=== PATIENT | male | born 1955 | race Caucasian/White ===

== ENCOUNTER 2019-08-03 10:27 | Observation (INO) | payer BC ==
[~2019-08-03] VITALS: Ht 180.3 cm; Wt 94.0 kg
--- NOTE | 2019-08-03 10:27 | NUR ---
Pt BIB [facility]/o "fluttering" feeling in chest starting this morning while he was a passenger in a car. Pt states that he began feeling dizzy as well. Pt states that the sx have now resolved but lasted for approximately 45min. Pt A&Ox4, skin PWD, NADN. Pt placed in gown, positioned for comfort in bed. Continuous heart, oxygen and BP monitors applied, all safety measures observed. Pt's friend at bedside. EKG completed by this RN and presented to Dr. Milner who is now at bedside to evaluate pt.
[2019-08-03 11:09] LABS: BASOPHILS # (AUTO) 0.02 x10^3/uL (0-0.1); BASOPHILS % (AUTO) 1 % (0-1); EOSINOPHILS # (AUTO) 0.08 x10^3/uL (0-0.4); EOSINOPHILS % (AUTO) 2 % (1-7); LYMPHOCYTES # (AUTO) 0.84 x10^3/uL (1-3.4); LYMPHOCYTES % (AUTO) 19 % (22-44); MD NO; MEAN CORPUSCULAR HGB CONC 32.9 g/dL (33.2-36.2); MEAN CORPUSCULAR VOLUME 85.2 fL (81-97); MONOCYTES # (AUTO) 0.32 x10^3/uL (0.2-0.8); MONOCYTES % (AUTO) 7 % (2-9); NEUTROPHILS # (AUTO) 3.24 x10^3/uL (1.8-6.8); NEUTROPHILS % (AUTO) 72 % (42-75); PLATELET COUNT 157 x10^3/uL (130-400); RED BLOOD COUNT 4.85 x10^6/uL (4.38-5.82); RED CELL DISTRIBUTION WIDTH 16.4 % (9.4-14.8)
--- NOTE | 2019-08-03 11:12 | NUR ---
Pt ambulatory to bathroom and back to bed with steady gait, NADN.
[2019-08-03 11:14] LABS: ALBUMIN 3.8 g/dL (3.4-5.0); ANION GAP 13 mmol/L (5-15); CALCIUM 8.7 mg/dL (8.5-10.1); CHLORIDE 109 mmol/L (98-107); CREATININE 1.15 mg/dL (0.7-1.3)
--- NOTE | 2019-08-03 11:44 | NUR ---
Pt resting in bed, NADN, denies needs. Dr. Milner at bedside to discuss POC with pt.
[2019-08-03] MEDS ORDERED: CETI10TA26 PO (12:28)
[2019-08-03] MEDS ORDERED: ALBU8.5H8 INH (12:28)
[2019-08-03] MEDS ORDERED: FLUT9.9S NAS (12:28)
--- NOTE | 2019-08-03 13:29 | NUR ---
Report called to Deborah HURT on card tele. Floor ready for pt transport.
[2019-08-03 13:57] VITALS: BP 161/100
[2019-08-03] MEDS ORDERED: ONDANSETRON ODT 4 MG PO PRN (14:00)
[2019-08-03] MEDS ORDERED: PROMETHAZINE 25 MG/ML, 1ML IM PRN (14:00)
[2019-08-03] MEDS ORDERED: hydrALAzine 20 MG/ML, 1ML IVPush PRN (14:00)
[2019-08-03] MEDS ORDERED: DOCUSATE 100 MG CAPSULE PO PRN (14:00)
[2019-08-03] MEDS ORDERED: BISACODYL 10 MG SUPP PR PRN (14:00)
[2019-08-03] MEDS ORDERED: ACETAMINOPHEN 325 MG TABLET PO PRN (14:00)
[2019-08-03] MEDS ORDERED: POLYETHYLENE GLYCOL 17 GM PACKET PO PRN (14:00)
[2019-08-03] MEDS ORDERED: ENOXAPARIN 40 MG/0.4 ML SQ SCH (14:00)
[2019-08-03] MEDS ORDERED: ONDANSETRON 2MG/ML, 2ML IVPush PRN (14:00)
[2019-08-03 14:11] VITALS: BP 161/100
[2019-08-03] MEDS: SODIUM CHLORIDE 0.9% 1,000 ML IV SCH (14:30)
[2019-08-03] MEDS ORDERED: ALBUTEROL HFA 90 MCG/SPRAY INH PRN (14:30)
[2019-08-03 16:34] LABS: MICROSCOPIC NOT IND
[2019-08-03 17:02] VITALS: BP 172/89
[2019-08-03 19:34] VITALS: BP 162/92
[2019-08-04 01:05] VITALS: BP 134/79
[2019-08-04] MEDS: SODIUM CHLORIDE 0.9% 1,000 ML IV SCH (03:13)
[2019-08-04 05:49] LABS: BASOPHILS # (AUTO) 0.02 x10^3/uL (0-0.1); BASOPHILS % (AUTO) 0 % (0-1); EOSINOPHILS # (AUTO) 0.13 x10^3/uL (0-0.4); EOSINOPHILS % (AUTO) 3 % (1-7); LYMPHOCYTES # (AUTO) 1.27 x10^3/uL (1-3.4); LYMPHOCYTES % (AUTO) 24 % (22-44); MD NO; MEAN CORPUSCULAR HEMOGLOBIN 27.9 pg (27.5-34.5); MEAN CORPUSCULAR HGB CONC 32.5 g/dL (33.2-36.2); MEAN CORPUSCULAR VOLUME 85.9 fL (81-97); MEAN PLATELET VOLUME 9.4 fL (7.4-10.4); MONOCYTES # (AUTO) 0.54 x10^3/uL (0.2-0.8); MONOCYTES % (AUTO) 10 % (2-9); NEUTROPHILS # (AUTO) 3.35 x10^3/uL (1.8-6.8); NEUTROPHILS % (AUTO) 63 % (42-75); PLATELET COUNT 146 x10^3/uL (130-400); RED BLOOD COUNT 4.69 x10^6/uL (4.38-5.82); RED CELL DISTRIBUTION WIDTH 16.9 % (9.4-14.8)
[2019-08-04 05:57] LABS: ALBUMIN 3.3 g/dL (3.4-5.0); ANION GAP 10 mmol/L (5-15); CALCIUM 8.6 mg/dL (8.5-10.1); CHLORIDE 109 mmol/L (98-107)
[2019-08-04 06:01] LABS: ALANINE AMINOTRANSFERASE 23 U/L (12-78); ALKALINE PHOSPHATASE 48 U/L (45-117); BILIRUBIN,TOTAL 0.7 mg/dL (0.2-1.0); CHOL/HDL RATIO 4.4; CHOLESTEROL, TOTAL 168 mg/dL (140-239); CREATININE 0.89 mg/dL (0.7-1.3); HDL CHOL % 23 % (26-37); HDL CHOLESTEROL (DIRECT) 38 mg/dL (40-60); LDL CHOLESTEROL,CALCULATED 99 mg/dL (54-169); LDL/HDL RATIO 2.6 (0.5-3.0); TOTAL PROTEIN 6.6 g/dL (6.4-8.2); TRIGLYCERIDES 153 mg/dL (50-200); VLDL CHOLESTEROL 31 mg/dL (0-25)
[2019-08-04 07:40] VITALS: BP 161/82
[2019-08-04] MEDS ORDERED: [UNRECOGNIZED DRUG - REMARK] NAS SCH (09:00)
[2019-08-04] MEDS ORDERED: CETIRIZINE 10 MG TABLET PO SCH (09:00)
[2019-08-04] MEDS ORDERED: FLUTICASONE NASAL SPRAY 16GM NAS SCH (09:00)
[2019-08-04] MEDS ORDERED: METO25TA35 PO (10:24)
[2019-08-04] MEDS ORDERED: METOPROLOL TARTRATE 25 MG TAB PO SCH (10:30)
== END 2019-08-04 12:39 | disposition home or self-care (01) ==
LOC: ED 12:44 → INTOOBSV 13:45 → EDIP 13:45 → 5SO 13:49 → DCLOUNGE 08-04 12:34
PROVIDERS: ADMIT Internal Medicine; ATTEND Internal Medicine
DX: I35.0 Nonrheumatic aortic (valve) stenosis (principal); R55 Syncope and collapse; I10 Essential (primary) hypertension; R42 Dizziness and giddiness; R00.2 Palpitations; R20.0 Anesthesia of skin; T78.40XA Allergy, unspecified, initial encounter; J45.20 Mild intermittent asthma, uncomplicated; Z79.899 Other long term (current) drug therapy
CPT/HCPCS: 36415; 70551; 71045; 80048; 80053; 80061; 81003; 82040; 82962; 83036; 83735; 84439; 84443; 85025; 93005; 93306; 93356; 93880; 96361; 96372; 96374; 99285; G0378; J0360; J1650; J7030